=== PATIENT | female | born 1945 | race Caucasian/White ===

== ENCOUNTER 2018-05-26 14:23 | Emergency (ER) | payer MEDICARE, MEDICAID, SELFPAY ==
[2018-05-26 14:34] VITALS: BP 126/77; PULSE 74; RESP 15; TEMP 36.7; O2SAT 96
--- NOTE | 2018-05-26 16:41 | W.ED.GENAD ---
Discharge Plan Disposition Patient Disposition: HOME Condition: Good Discharge Details Chief Complaint: AnimalBite Clinical Impression: Wound due to squirrel bite Primary Care Provider: Brenda Joya V ED Provider: Devin Linares Home Meds and New Rx's Prescriptions: Continue meclizine 25 MG tablet,chewable 25 mg PO QID RF: 0 ascorbic acid (vitamin C) [Vitamin C] 500 MG tablet,chewable 1,000 mg PO DAILY RF: 0 metoprolol succinate 25 MG tablet extended release 24 hr 25 mg PO DAILY RF: 0 nitroglycerin 0.4 MG tablet, sublingual 0.4 mg Sublingual PRN PRNRF: 0 ciprofloxacin HCl 250 mg Tablet 250 mg PO BID RF: 0 Discharge Instructions Instructions: Animal Bite (ED), Rabies (ED), Rabies Vaccine (ED) Additional Instructions: Return immediately for any new or worsening symptoms otherwise follow-up with your primary care provider as needed. Continue to take your medications as ordered Referrals: Brenda Joya MD [Primary Care Provider] - (As needed for reassessment) Discharge Data Discharge Date/Time-TO BE ENTERED AT DEPARTURE: 05/26/18 16:54 Medical Decision Making Patient presenting the emergency department due to primary care provider stating that she needed to come to the emergency department for rabies vaccination. Patient states that last night she was attempting to shoot a school off her bird feeder and came running yelling screaming at the squirrel and it was dark and the squirrel bite her finger. Patient presented to primary care office and placed her on antibiotics but then later called and recommended patient have rabies vaccine. Patient does have small erythematous area to left ring finger which is consistent with animal bite but otherwise no other symptoms and denies any muscle spasms, jaw spasms and denies other symptoms and states that she is asymptomatic. Called and spoke with the nurse at [facility] whom stated somebody talked with the health department and due to erratic behavior of the animal that they recommended rabies vaccine. Patient is very hesitant and states that she does not prefer to have vaccine unless [place] required. I did discuss low likelihood of squirrel bite transmitting rabies and we also discussed more provoked attack and that the animal was not being aggressive towards her but she has been aggressive towards animal. Patient does state clear understanding of risk versus benefit of not receiving vaccine but at this time she chooses not to receive any vaccination. Patient was clearly educated on need to return for any new or worsening symptoms otherwise to follow-up with primary care as needed for reassessment. HPI General Mode of arrival: ambulatory. Date/Time Provider Initiated Documentation: 05/26/18 14:41. Limitations to Documentation: no limitations. Information obtained by: patient and RN notes reviewed. History of Present Illness 72 year old F presents to the emergency department with the chief complaint of Animal bite, described as mild, with intensity rated at 2. Quality is described as aching, and is localized to the right and upper extremity. Patient reports no radiation. Patient started experiencing this day(s) (1) and it has been constant. No relieving factors improve symptom(s), No exacerbating factors reported . Patient notes no other symptoms.. Patient did receive the following treatments prior to arrival, none Related Data Home Medications Medication Instructions Recorded Confirmed meclizine 25 mg PO QID tab-cap 01/17/15 05/26/18 ascorbic acid (vitamin C) [Vitamin 1,000 mg PO DAILY tab.chew 01/22/15 05/26/18 C] metoprolol succinate 25 mg PO DAILY 04/23/15 05/26/18 nitroglycerin 0.4 mg SUBLINGUAL PRN PRN 12/16/17 05/26/18 ciprofloxacin HCl 250 mg PO BID 05/26/18 05/26/18 Allergies Allergy/AdvReac Type Severity Reaction Status Date / Time shellfish derived Allergy Unverified 05/26/18 14:42 General Stated Complaint: AnimalBite BRIGITTE: 4 Review of Systems Constitutional Denies body ache(s), Denies chills and Denies fever(s) Cardiovascular Denies chest pain and Denies dyspnea Respiratory Denies dyspnea Gastrointestinal Denies abdominal pain, Denies nausea and Denies vomiting Integumentary/Breasts Reports as per HPI and Denies rash Neurologic Denies confusion and Denies sensory deficit Psychiatric Denies confusion [facility] Medical History Hypertension (Chronic) Social History Smoking/Tobacco Use Status: Never Exam Const General: cooperative, no acute distress and not ill appearing Orientation: alert, awake and oriented x3 HENMT Mouth: moist mucous membranes Resp Effort & Inspection: normal respiratory effort, able to speak in complete sentences and no respiratory distress Cardio Rate: regular rate Rhythm: regular rhythm Skin General skin exam: no rashes or lesions noted Neuro General: alert, awake, oriented x3, moves all extremities and no focal motor deficits Sensory Exam: no sensory deficits noted Extrem General: full ROM, normal capillary refill and normal exam except as noted Right upper extremity: hand Details: abrasion Location: of the 4th digit Location: on the dorsal aspect Course Vital Signs Temperature 36.7 C 05/26/18 14:34 Pulse 74 05/26/18 14:34 Respiratory Rate 15 05/26/18 14:34 Blood Pressure 126/77 05/26/18 14:34 Pulse Oximetry 96 05/26/18 14:34 Temperature 36.7 C 05/26/18 14:34 Temperature Source Temporal Artery Scan 05/26/18 14:34 Pulse 74 05/26/18 14:34 Respiratory Rate 15 05/26/18 14:34 Respiratory Effort Non-Labored 05/26/18 14:40 Blood Pressure 126/77 05/26/18 14:34 Blood Pressure Position Sitting 05/26/18 14:34 Pulse Oximetry 96 05/26/18 14:34 Oxygen Delivery Method Room Air 05/26/18 14:34 Oxygen Flow Rate 0 05/26/18 14:34
--- NOTE | 2018-05-26 16:45 | ED.GENADUL_ITS ---
Discharge Plan Disposition Patient Disposition: HOME Condition: Good Discharge Details Chief Complaint: AnimalBite Clinical Impression: Wound due to squirrel bite Primary Care Provider: Brenda Joya V ED Provider: Devin Linares Home Meds and New Rx's Prescriptions: Continue meclizine 25 MG tablet,chewable 25 mg PO QID RF: 0 ascorbic acid (vitamin C) [Vitamin C] 500 MG tablet,chewable 1,000 mg PO DAILY RF: 0 metoprolol succinate 25 MG tablet extended release 24 hr 25 mg PO DAILY RF: 0 nitroglycerin 0.4 MG tablet, sublingual 0.4 mg Sublingual PRN PRNRF: 0 ciprofloxacin HCl 250 mg Tablet 250 mg PO BID RF: 0 Discharge Instructions Instructions: Animal Bite (ED), Rabies (ED), Rabies Vaccine (ED) Additional Instructions: Return immediately for any new or worsening symptoms otherwise follow-up with your primary care provider as needed. Continue to take your medications as ordered Referrals: Brenda Joya MD [Primary Care Provider] - (As needed for reassessment) Discharge Data Discharge Date/Time-TO BE ENTERED AT DEPARTURE: 05/26/18 16:54 Medical Decision Making Patient presenting the emergency department due to primary care provider stating that she needed to come to the emergency department for rabies vaccination. Patient states that last night she was attempting to shoot a school off her bird feeder and came running yelling screaming at the squirrel and it was dark and the squirrel bite her finger. Patient presented to primary care office and placed her on antibiotics but then later called and recommended patient have rabies vaccine. Patient does have small erythematous area to left ring finger which is consistent with animal bite but otherwise no other symptoms and denies any muscle spasms, jaw spasms and denies other symptoms and states that she is asymptomatic. [facility] stated somebody talked with the health department and due to erratic behavior of the animal that they recommended rabies vaccine. Patient is very hesitant and states that she does not prefer to have vaccine unless [place] required. I did discuss low likelihood of squirrel bite transmitting rabies and we also discussed more provoked attack and that the animal was not being aggressive towards her but she has been aggressive towards animal. Patient does state clear understanding of risk versus benefit of not receiving vaccine but at this time she chooses not to receive any vaccination. Patient was clearly educated on need to return for any new or worsening symptoms otherwise to follow-up with primary care as needed for reassessment. HPI General Mode of arrival: ambulatory . Date/Time Provider Initiated Documentation: 05/26/18 14:41 . Limitations to Documentation: no limitations . Information obtained by: patient and RN notes reviewed . History of Present Illness 72 year old F presents to the emergency department with the chief complaint of Animal bite, described as mild, with intensity rated at 2. Quality is described as aching, and is localized to the right and upper extremity. Patient reports no radiation. Patient started experiencing this day(s) (1) and it has been constant. No relieving factors improve symptom(s), No exacerbating factors reported . Patient notes no other symptoms.. Patient did receive the following treatments prior to arrival, none Related Data Home Medications Medication Instructions Recorded Confirmed meclizine 25 mg PO QID tab-cap 01/17/15 05/26/18 ascorbic acid (vitamin C) [Vitamin 1,000 mg PO DAILY tab.chew 01/22/15 05/26/18 C] metoprolol succinate 25 mg PO DAILY 04/23/15 05/26/18 nitroglycerin 0.4 mg SUBLINGUAL PRN PRN 12/16/17 05/26/18 ciprofloxacin HCl 250 mg PO BID 05/26/18 05/26/18 Allergies Allergy/AdvReac Type Severity Reaction Status Date / Time shellfish derived Allergy Unverified 05/26/18 14:42 General Stated Complaint: AnimalBite BRIGITTE: 4 Review of Systems Constitutional Denies body ache(s), Denies chills and Denies fever(s) Cardiovascular Denies chest pain and Denies dyspnea Respiratory Denies dyspnea Gastrointestinal Denies abdominal pain, Denies nausea and Denies vomiting Integumentary/Breasts Reports as per HPI and Denies rash Neurologic Denies confusion and Denies sensory deficit Psychiatric Denies confusion [facility] Medical History Hypertension (Chronic) Social History Smoking/Tobacco Use Status: Never Exam Const General: cooperative, no acute distress and not ill appearing Orientation: alert, awake and oriented x3 HENMT Mouth: moist mucous membranes Resp Effort & Inspection: normal respiratory effort, able to speak in complete sentences and no respiratory distress Cardio Rate: regular rate Rhythm: regular rhythm Skin General skin exam: no rashes or lesions noted Neuro General: alert, awake, oriented x3, moves all extremities and no focal motor deficits Sensory Exam: no sensory deficits noted Extrem General: full ROM, normal capillary refill and normal exam except as noted Right upper extremity: hand Details: abrasion Location: of the 4th digit Location: on the dorsal aspect Course Vital Signs Temperature 36.7 C 05/26/18 14:34 Pulse 74 05/26/18 14:34 Respiratory Rate 15 05/26/18 14:34 Blood Pressure 126/77 05/26/18 14:34 Pulse Oximetry 96 05/26/18 14:34 Temperature 36.7 C 05/26/18 14:34 Temperature Source Temporal Artery Scan 05/26/18 14:34 Pulse 74 05/26/18 14:34 Respiratory Rate 15 05/26/18 14:34 Respiratory Effort Non-Labored 05/26/18 14:40 Blood Pressure 126/77 05/26/18 14:34 Blood Pressure Position Sitting 05/26/18 14:34 Pulse Oximetry 96 05/26/18 14:34 Oxygen Delivery Method Room Air 05/26/18 14:34 Oxygen Flow Rate 0 05/26/18 14:34
[2018-05-26 16:53] VITALS: BP 133/80; PULSE 80; RESP 18; TEMP 36.8; O2SAT 95
== END 2018-05-26 16:54 | disposition home or self-care (01) ==
PROVIDERS: Emergency Provider Nurse Practitioner Family; PCP Family Medicine
DX: S61.254A Open bite of right ring finger without damage to nail, initial encounter (principal); W53.21XA Bitten by squirrel, initial encounter
CPT/HCPCS: 99282

== ENCOUNTER 2018-06-12 08:17 | Day surgery (SDC) | payer MEDICARE, MEDICAID, SELFPAY ==
--- NOTE | 2018-06-11 12:41 | W.PIPPEYE ---
History of Present Illness Chief Complaint: Progressive decreased vision, left eye Narrative: The patient is a 72-year old female with history of progressive decreased vision in her left eye at both distance and near. She has significant difficulty with glare from sunlight and bright headlights. She was noted to have a moderate nuclear and cortical cataract of the left eye with visual acuity of 20/40. She has developed a significant myopic shift in the left eye due to progressive cataract. She always takes her glasses off to read, and desires to do so postoperatively. Postoperative refractive target will be targeted for -2.50 diopters. NOTE: The Chief Complaint, HPI, Past Medical History, Past Surgical History, Family History, Social History, Medications, and complete Ophthalmic Exam with detailed Assessment and Plan have already been documented in the patient's outpatient ophthalmic record and are not covered again in detail here. Meds Home Medications Medication Instructions Recorded Confirmed Type meclizine 25 mg PO Q6H PRN PRN tab-cap 01/17/15 06/07/18 History ascorbic acid (vitamin C) [Vitamin 1,000 mg PO DAILY tab.chew 01/22/15 06/07/18 History C] ascorbic acid (vitamin C) [Vitamin 1 g PO DAILY 05/23/18 05/23/18 History C] meclizine 12.5 - 25 mg PO PRN PRN 05/23/18 05/23/18 History metoprolol tartrate 12.5 mg PO HS 05/23/18 05/23/18 History nitroglycerin 0.4 mg SUBLINGUAL DIRECTED 05/23/18 05/23/18 History calcium carbonate-vit D3-min 1 tab PO .QOD 06/07/18 06/07/18 History [Calcium 600 + Minerals] cholecalciferol (vitamin D3) 1,000 unit PO DAILY 06/07/18 06/07/18 History [Vitamin D3] clobetasol 1 applic TOPICAL DAILY 06/07/18 06/07/18 History mupirocin 1 applic TOPICAL BID 06/07/18 06/07/18 History rosuvastatin [Crestor] 5 mg PO DAILY 06/07/18 06/07/18 History Allergies Allergy/AdvReac Type Severity Reaction Status Date / Time bacitracin [From Cortisporin] Allergy Mild Verified 06/07/18 11:10 cephalexin Allergy Mild Verified 06/07/18 11:10 hydrocortisone Allergy Mild Verified 06/07/18 11:10 [From Cortisporin] neomycin [From Cortisporin] Allergy Mild Verified 06/07/18 11:10 Penicillins Allergy Mild Verified 06/07/18 11:10 polymyxin B Allergy Mild Verified 06/07/18 11:10 [From Cortisporin] amoxicillin Allergy Unknown Verified 06/05/18 14:04 shellfish derived Allergy Unverified 06/05/18 14:04 Sulfa (Sulfonamide Allergy Verified 06/05/18 14:04 Antibiotics) Exam OCULAR EXAM:: Visual acuity at distance: Corrected to 20/20 right eye, 20/40 left eye. Pupils: Pupils equal, round, and reactive without afferent pupillary defect IOP: 16 OD, 14 OS. Extraocular Motility: Normal Pertinent Slit Lamp Findings: Significant for pupils dilating to 6.5 mm OU. 1+ nuclear with trace cortical cataract OD. 2+ nuclear in 1-2+ cortical cataract are present OS. Dilated Funduscopic Examination: Disc cupping is 0.3 OU with a small tilted disc. The optic nerves have good perfusion and normal color. The retinal vasculature is normal without significant tortuosity or abnormality. The maculas are normal in appearance with normal contour and foveal reflex appropriate for age. The peripheral retina and vitreous are normal. BRIGHTNESS ACUITY TESTING (BAT):: Off left eye 20/40 Low: 20/60 Medium: 20/60 High: 20/80 Assessment and Plan (1) Myopia of left eye: Current visit: No Status: Acute Assessment: Myopia Plan: The patient is myopic and has removed her glasses to read for a long time. She desires to remain myopic after cataract surgery. Postoperative refractive target is set at -2.50 diopters. (2) Nuclear sclerotic cataract of left eye: Current visit: No Status: Acute Assessment: Visually significant cataract, left eye. Plan: Cataract extraction with intraocular lens implantation, left eye (3) Cortical cataract of left eye: Current visit: No Status: Acute Assessment: Visually significant cataract, left eye. Plan: Cataract extraction with intraocular lens implantation, left eye Note: NOTE:: The details of the planned surgery, including the risks, indications,limitations,expectations,outcome and possible complications were explained to the patient. The patient understands the complications including, but not limited to: infection, hemorrhage, posterior dislocation of the lens or nuclear fragments which may require the intervention of a vitreoretinal surgeon, possible loss of the eye, or from anesthetic complications. The patient has been made aware of the option of not having surgery, that vision following surgery may not be equal to that prior to surgery, and that the planned surgery may not achieve the intended results. Following this discussion, which the patient appeared to understand, the patient wishes to proceed with cataract surgery with lens implantation of the affected eye to improve and maximize vision.
[2018-06-12 09:02] VITALS: BP 147/83; PULSE 64; RESP 16; TEMP 37; O2SAT 98
[2018-06-12] MEDS: Tetracaine 0.5% 4 ML BTL OS ×3 (09:27→09:36)
--- NOTE | 2018-06-12 10:50 | DSU.FORM ---
1015: PT. SURGERY CANCELLED PER ANESTHESIA, PENDING F/U WITH PRESS PIPE INSPECTOR.
--- NOTE | 2018-07-10 08:47 | W.PM.DSUDISC ---
Discharge Plan Disposition Patient Disposition: HOME Condition: Stable Discharge Details Reason For Visit: [id number] Attending Provider: Benny Cabrera Primary Care Provider: Brenda Joya V Home Meds and New Rx's Prescriptions: No Action meclizine 25 MG tablet,chewable 25 mg PO Q6H PRN PRNRF: 0 ascorbic acid (vitamin C) [Vitamin C] 500 MG tablet,chewable 1,000 mg PO DAILY RF: 0 metoprolol tartrate 25 mg Tablet 12.5 mg PO HS RF: 0 nitroglycerin 0.4 mg Tablet, Sublingual 0.4 mg SUBLINGUAL DIRECTED RF: 0 clobetasol 0.05 % Cream 1 applic TOPICAL DAILY RF: 0 mupirocin 2 % Ointment 1 applic TOPICAL BID RF: 0 cholecalciferol (vitamin D3) [Vitamin D3] 1,000 unit Capsule 1,000 unit PO DAILY RF: 0 rosuvastatin [Crestor] 5 mg Tablet 5 mg PO DAILY RF: 0 Calcium 600 + Minerals 600 mg calcium- 200 unit Tablet 1 tab PO .QOD RF: 0 ciprofloxacin HCl 250 mg Tablet 250 mg PO RF: 0 Discharge Instructions Stand Alone Forms: Post-op Topical Cataract, Royce Larryey ([facility]U) Discharge Orders Discharge Orders: Discharge Order (Routine); Ordered 07/10/18 Ordered By: Benny Cabrera Discharge Data Discharge Date/Time-TO BE ENTERED AT DEPARTURE: 06/12/18 10:15 Discharge Comment: SURGERY CANCELLED PER ANES. PT LEFT VIA RCT. DS: Diagnosis Discharge Diagnosis (1) Myopia of left eye: Status: Resolved (2) Nuclear sclerotic cataract of left eye: Status: Resolved (3) Cortical cataract of left eye: Status: Resolved (4) Status post cataract extraction and insertion of intraocular lens of left eye: Status: Chronic
--- NOTE | 2018-07-10 08:48 | W.PM.OP ---
Date of service: 07/10/18 Time of Service: 08:48 Operative Note DATE OF PROCEDURE: 07/10/18 PRE-OP DIAGNOSIS: Cataract, left eye POST-OP DIAGNOSIS: same PROCEDURE: Cataract extraction using phacoemulsification with intraocular lens implant, left eye SURGEON: Benny Cabrera ANESTHESIA: MAC and local (sub-tenon's anesthetic infiltration) PATHOLOGY: none sent COMPLICATIONS: None Patient was transported to: same day Patient's condition: stable Implants: [employer] / [employer] Tecnis [id number] Indications: Progressive decreased vision due to cataract, left eye Procedure Description: CATARACT SURGERY OPERATIVE REPORT PREOPERATIVE DIAGNOSIS: Nuclear/cortical cataract, left eye, symptomatic POSTOPERATIVE DIAGNOSIS: Same OPERATION: Cataract extraction using phacoemulsification with posterior chamber intraocular lens implant, left eye. IOL: IOL Manager Regional Sales/Model: [employer]J Vision / SANCHEZ Tecnis ZCB00 IOL Power: + 20.0 diopters IOL Serial Number: [id number] Optic Diameter: 6.0mm Haptic/Overall Diameter: 13.0mm PHACO INFO: [employer] Vision System with OZil and Active Fluidics Cumulative Dispersed Energy (CDE): 8.11 seconds SURGEON: Benny Cabrera MD, RHIANNA ANESTHESIA: Monitored Anesthesia Care (MAC), with local sub-tenon's anesthetic infiltration COMPLICATIONS: None SPECIMENS: None INDICATIONS FOR PROCEDURE: The patient is a 72-year-old lady with history of myopia who has developed a significant nuclear and cortical cataract of the left eye. She was significantly symptomatic that she desired cataract surgery and attempt to improve and maximize her vision. Postoperative refractive target is -2.50. PROCEDURE: The correct surgical eye was identified and marked as the left eye and the pupil was dilated in the preoperative area using mydriatics and cycloplegics. The dilated pupil size was 7.0 mm. Oral sedation was administered in the form of an Imprimis MKO Melt (midazolam 3mg/ketamine 25mg/ondansetron 2mg). The patient was brought to the operating room where cardiopulmonary monitoring was instituted and surgical time-out was performed, confirming the correct operative eye and IOL power. Topical anesthesia was administered and ophthalmic povidone-iodine 5% was instilled into the conjunctival fornices. Lidocaine gel was applied to the cornea and the sridevi-ocular area was prepped with Betadine 10% solution and draped in the usual sterile fashion for intraocular surgery, including an aperture drape. A Tegaderm transparent film dressing was cut in half and used to cover the lashes and lid margins. Care was taken to sequester the lashes and lid margins under the Tegaderm dressing. A lid speculum was placed between the lids of the operative eye and the Jair-Mariam operating microscope was maneuvered into position. Adeline scissors were then used to make a conjunctival buttonhole approximately 6mm posterior to the limbus in the inferonasal quadrant. Blunt dissection was carried out to expose bare sclera, and a blunt-tipped sub-tenon?s anesthesia cannula was introduced and passed posteriorly along the globe where non-preserved plain lidocaine was injected into posterior sub-Tenon?s space. A sideport knife was used to make a paracentesis port superior/superiortemporal, and the anterior chamber was filled with Healon GV. A 2.4mm keratome knife was used to create a half-thickness groove at the limbus and then to construct a three-plane near-clear corneal tunnel extending 2.0mm into clear cornea in the temporal position. . A flap was raised on the anterior capsule and capsulorhexis forceps were used to complete a continuous curvilinear capsulorhexis of 5.5 mm. The capsule was noted to be quite thin with a deep anterior chamber Balanced salt solution was then used to perform cortical cleaving hydrodissection and nuclear hydrodelineation until the lens could be freely rotated within the capsular bag. The lens nucleus was then disassembled and removed within the capsular bag and iris plane using phacoemulsification. Residual cortical material was removed using the 45-degree angled silicone I/A tip with 0.3mm port. The posterior capsule was carefully polished to remove as much residual lens epithelial cells as safely possible. The capsular bag was then inflated and the anterior chamber deepened with viscoelastic. The lens implant described above was inserted into the capsular bag using the SANCHEZ [place] Injector. A Kuglen hook was used to dial the IOL into position. Residual viscoelastic was then removed first from posterior to the IOL, then from the anterior chamber using the I/A handpiece. The lens implant was noted to center nicely within the capsular bag. The incisions were stromally hydrated, and the anterior chamber was reformed using BSS. Then 0.4cc of moxifloxacin 1.5mg/ml were injected into the capsular bag and anterior chamber. The incisions were checked with a Weck spear and found to be secure. Several drops of ophthalmic povidone-iodine 5% were then applied to the eye followed by two drops of Imprimis combination moxifloxacin/dexamethasone solution. The drapes were removed and a clear plastic protective eye shield was placed over the eye. The patient was then returned to Same Day Surgery in stable condition.
--- NOTE | 2018-07-10 08:51 | ROE_ITS ---
Date of service: 07/10/18 Time of Service: 08:48 Operative Note DATE OF PROCEDURE: 07/10/18 PRE-OP DIAGNOSIS: Cataract, left eye POST-OP DIAGNOSIS: same PROCEDURE: Cataract extraction using phacoemulsification with intraocular lens implant, left eye SURGEON: Benny Cabrera ANESTHESIA: MAC and local (sub-tenon's anesthetic infiltration) PATHOLOGY: none sent COMPLICATIONS: None Patient was transported to: same day Patient's condition: stable Implants: [employer] Vision / [employer] Tecnis [id number] Indications: Progressive decreased vision due to cataract, left eye Procedure Description: CATARACT SURGERY OPERATIVE REPORT PREOPERATIVE DIAGNOSIS: Nuclear/cortical cataract, left eye, symptomatic POSTOPERATIVE DIAGNOSIS: Same OPERATION: Cataract extraction using phacoemulsification with posterior chamber intraocular lens implant, left eye. IOL: IOL Marine Machinist/Model: J&J Vision / SANCHEZ Tecnis ZCB00 IOL Power: + 20.0 diopters IOL Serial Number: [id number] Optic Diameter: 6.0mm Haptic/Overall Diameter: 13.0mm PHACO INFO: [employer] Vision System with OZil and Active Fluidics Cumulative Dispersed Energy (CDE): 8.11 seconds SURGEON: Benny Cabrera MD, RHIANNA ANESTHESIA: Monitored Anesthesia Care (MAC), with local sub-tenon's anesthetic infiltration COMPLICATIONS: None SPECIMENS: None INDICATIONS FOR PROCEDURE: The patient is a 72-year-old lady with history of myopia who has developed a significant nuclear and cortical cataract of the left eye. She was significantly symptomatic that she desired cataract surgery and attempt to improve and maximize her vision. Postoperative refractive target is -2.50. PROCEDURE: The correct surgical eye was identified and marked as the left eye and the pupil was dilated in the preoperative area using mydriatics and cycloplegics. The dilated pupil size was 7.0 mm. Oral sedation was administered in the form of an Imprimis MKO Melt (midazolam 3mg/ketamine 25mg/ondansetron 2mg). The patient was brought to the operating room where cardiopulmonary monitoring was instituted and surgical time-out was performed, confirming the correct operative eye and IOL power. Topical anesthesia was administered and ophthalmic povidone-iodine 5% was instilled into the conjunctival fornices. Lidocaine gel was applied to the cornea and the sridevi-ocular area was prepped with Betadine 10% solution and draped in the usual sterile fashion for intraocular surgery, including an aperture drape. A Tegaderm transparent film dressing was cut in half and used to cover the lashes and lid margins. Care was taken to sequester the lashes and lid margins under the Tegaderm dressing. A lid speculum was placed between the lids of the operative eye and the Jair-Mariam operating microscope was maneuvered into position. Adeline scissors were then used to make a conjunctival buttonhole approximately 6mm posterior to the limbus in the inferonasal quadrant. Blunt dissection was carried out to expose bare sclera, and a blunt-tipped sub-tenon?s anesthesia cannula was introduced and passed posteriorly along the globe where non- preserved plain lidocaine was injected into posterior sub-Tenon?s space. A sideport knife was used to make a paracentesis port superior/superiortemporal, and the anterior chamber was filled with Healon GV. A 2.4mm keratome knife was used to create a half-thickness groove at the limbus and then to construct a three-plane near-clear corneal tunnel extending 2.0mm into clear cornea in the temporal position. . A flap was raised on the anterior capsule and capsulorhexis forceps were used to complete a continuous curvilinear capsulorhexis of 5.5 mm. The capsule was noted to be quite thin with a deep anterior chamber Balanced salt solution was then used to perform cortical cleaving hydrodissection and nuclear hydrodelineation until the lens could be freely rotated within the capsular bag. The lens nucleus was then disassembled and removed within the capsular bag and iris plane using phacoemulsification. Residual cortical material was removed using the 45-degree angled silicone I/A tip with 0.3mm port. The posterior capsule was carefully polished to remove as much residual lens epithelial cells as safely possible. The capsular bag was then inflated and the anterior chamber deepened with viscoelastic. The lens implant described above was inserted into the capsular bag using the SANCHEZ [place] Injector. A Kuglen hook was used to dial the IOL into position. Residual viscoelastic was then removed first from posterior to the IOL, then from the anterior chamber using the I/A handpiece. The lens implant was noted to center nicely within the capsular bag. The incisions were stromally hydrated, and the anterior chamber was reformed using BSS. Then 0.4cc of moxifloxacin 1.5mg/ml were injected into the capsular bag and anterior chamber. The incisions were checked with a Weck spear and found to be secure. Several drops of ophthalmic povidone-iodine 5% were then applied to the eye followed by two drops of Imprimis combination moxifloxacin/dexamethasone solution. The drapes were removed and a clear plastic protective eye shield was placed over the eye. The patient was then returned to Same Day Surgery in stable condition.
== END 2018-06-12 10:15 | disposition home or self-care (01) ==
LOC: SUR 08:17
PROVIDERS: PCP Family Medicine; Visit Provider Ophthalmology
DX: H25.12 Age-related nuclear cataract, left eye (principal); Z53.09 Procedure and treatment not carried out because of other contraindication; R07.9 Chest pain, unspecified; Y66 Nonadministration of surgical and medical care
CPT/HCPCS: 66984

== ENCOUNTER 2018-07-10 06:39 | Day surgery (SDC) | payer MEDICARE, MEDICAID, SELFPAY ==
--- NOTE | 2018-07-09 16:39 | POEE_ITS ---
History of Present Illness Chief Complaint: Progressive decreased vision, left eye Narrative: The patient is a 72-year old female who presented with complaints of progressive decreased vision at both distance and near in her left eye. She notes she can no longer see clearly in her left eye. She was noted to have a significant nuclear and cortical cataract with visual acuity of 20/40 in the left eye. The option of cataract surgery was offered to the patient and she wished to proceed. NOTE: The Chief Complaint, HPI, Past Medical History, Past Surgical History, Family History, Social History, Medications, and complete Ophthalmic Exam with detailed Assessment and Plan have already been documented in the patient's outpatient ophthalmic record and are not covered again in detail here. PFSH Medical History Cortical cataract of left eye (Acute) Nuclear sclerotic cataract of left eye (Acute) Hypertension (Chronic) Social History Smoking/Tobacco Use Status: Former Tobacco Use Meds Home Medications Medication Instructions Recorded Confirmed Type meclizine 25 mg PO Q6H PRN PRN tab-cap 01/17/15 07/05/18 History ascorbic acid (vitamin C) [Vitamin 1,000 mg PO DAILY tab.chew 01/22/15 07/05/18 History C] metoprolol tartrate 12.5 mg PO HS 05/23/18 07/05/18 History nitroglycerin 0.4 mg SUBLINGUAL DIRECTED 05/23/18 07/05/18 History calcium carbonate-vit D3-min 1 tab PO .QOD 06/07/18 07/05/18 History [Calcium 600 + Minerals] cholecalciferol (vitamin D3) 1,000 unit PO DAILY 06/07/18 07/05/18 History [Vitamin D3] clobetasol 1 applic TOPICAL DAILY 06/07/18 07/05/18 History mupirocin 1 applic TOPICAL BID 06/07/18 07/05/18 History rosuvastatin [Crestor] 5 mg PO DAILY 06/07/18 07/05/18 History ciprofloxacin HCl 250 mg PO 06/12/18 History Allergies Allergy/AdvReac Type Severity Reaction Status Date / Time bacitracin [From Cortisporin] Allergy Mild Verified 07/05/18 12:03 cephalexin Allergy Mild Verified 07/05/18 12:03 hydrocortisone Allergy Mild Verified 07/05/18 12:03 [From Cortisporin] neomycin [From Cortisporin] Allergy Mild Verified 07/05/18 12:03 Penicillins Allergy Mild Verified 07/05/18 12:03 polymyxin B Allergy Mild Verified 07/05/18 12:03 [From Cortisporin] amoxicillin Allergy Unknown Verified 07/05/18 12:03 shellfish derived Allergy Unverified 07/05/18 12:03 Sulfa (Sulfonamide Allergy Verified 07/05/18 12:03 Antibiotics) Exam OCULAR EXAM:: Most recent ocular examination reveals corrected visual acuity of 20/20 right eye, 20/40 left eye. Pupils equal, round, and reactive without afferent pupillary defect. Intraocular pressure is 16 OD, 14 OS. Extraocular motility is normal. Slit-lamp examination reveals pupils dilating to 6.5 mm OU. 1+ nuclear with trace cortical cataract OD. 2+ nuclear with 1-2+ cortical cataract in the left eye. Funduscopic examination reveals disc cupping of 0.1 OU with good color. The optic nerves have good perfusion and normal color. The retinal vasculature is normal without significant tortuosity or abnormality. The maculas are normal in appearance with normal contour and foveal reflex appropriate for age. The peripheral retina and vitreous are normal. BRIGHTNESS ACUITY TESTING (BAT):: Brightness acuity testing of the left eye of 20/40. Low 20/60. Medium 20/60. High 20/80. Assessment and Plan (1) Nuclear sclerotic cataract of left eye: Current visit: No Status: Acute Assessment: Visually significant cataract, left eye. Plan: Cataract extraction with intraocular lens implantation, left eye (2) Cortical cataract of left eye: Current visit: No Status: Acute Assessment: Visually significant cataract, left eye. Plan: Cataract extraction with intraocular lens implantation, left eye Note: NOTE:: The details of the planned surgery, including the risks, indications,limitations,expectations,outcome and possible complications were explained to the patient. The patient understands the complications including, but not limited to: infection, hemorrhage, posterior dislocation of the lens or nuclear fragments which may require the intervention of a vitreoretinal surgeon, possible loss of the eye, or from anesthetic complications. The patient h as been made aware of the option of not having surgery, that vision following surgery may not be equal to that prior to surgery, and that the planned surgery may not achieve the intended results. Following this discussion, which the patient appeared to understand, the patient wishes to proceed with cataract surgery with lens implantation of the affected eye to improve and maximize vision.
[2018-07-10 06:56] VITALS: BP 145/85; PULSE 77; RESP 16; TEMP 36.6; O2SAT 98
[2018-07-10] MEDS: Tetracaine 0.5% 4 ML BTL OS ×2 (07:18→08:17)
[2018-07-10] MEDS: Tropicam./Phenyleph. (1/2.5%) 5 ML BTL OS ×3 (07:19→07:57)
[2018-07-10] MEDS: Balanced Salt Soln.-PLUS 500 ML BAG (08:17)
[2018-07-10] MEDS: Lidocaine 2% Jelly 6 ML SYR (08:17)
[2018-07-10] MEDS: Lidocaine 1% Pres-Free 5 ML VIAL (08:21)
[2018-07-10] MEDS: Povidone-Iodine Ophth 30 ML BTL (08:25)
[2018-07-10 09:10] VITALS: BP 120/78; PULSE 79; RESP 16; TEMP 37.4; O2SAT 94
--- NOTE | 2018-07-10 09:56 | ROE_ITS ---
Date of service: 07/10/18 Time of Service: 08:48 Operative Note DATE OF PROCEDURE: 07/10/18 PRE-OP DIAGNOSIS: Cataract, left eye POST-OP DIAGNOSIS: same PROCEDURE: Cataract extraction using phacoemulsification with intraocular lens implant, left eye SURGEON: Benny Cabrera ANESTHESIA: MAC and local (sub-tenon's anesthetic infiltration) PATHOLOGY: none sent COMPLICATIONS: None Patient was transported to: same day Patient's condition: stable Implants: Erwin [employer] Vision / [employer] Tecnis [id number] Indications: Progressive decreased vision due to cataract, left eye Procedure Description: CATARACT SURGERY OPERATIVE REPORT PREOPERATIVE DIAGNOSIS: Nuclear/cortical cataract, left eye, symptomatic POSTOPERATIVE DIAGNOSIS: Same OPERATION: Cataract extraction using phacoemulsification with posterior chamber intraocular lens implant, left eye. IOL: IOL Equal Opportunity Specialist/Model: J&J Vision / SANCHEZ Tecnis ZCB00 IOL Power: + 20.0 diopters IOL Serial Number: [id number] Optic Diameter: 6.0mm Haptic/Overall Diameter: 13.0mm PHACO INFO: [employer] Vision System with OZil and Active Fluidics Cumulative Dispersed Energy (CDE): 8.11 seconds SURGEON: Benny Cabrera MD, RHIANNA ANESTHESIA: Monitored Anesthesia Care (MAC), with local sub-tenon's anesthetic infiltration COMPLICATIONS: None SPECIMENS: None INDICATIONS FOR PROCEDURE: The patient is a 72-year-old lady with history of myopia who has developed a significant nuclear and cortical cataract of the left eye. She was significantly symptomatic that she desired cataract surgery and attempt to improve and maximize her vision. Postoperative refractive target is -2.50. PROCEDURE: The correct surgical eye was identified and marked as the left eye and the pupil was dilated in the preoperative area using mydriatics and cycloplegics. The dilated pupil size was 7.0 mm. Oral sedation was administered in the form of an Imprimis MKO Melt (midazolam 3mg/ketamine 25mg/ondansetron 2mg). The patient was brought to the operating room where cardiopulmonary monitoring was instituted and surgical time-out was performed, confirming the correct operative eye and IOL power. Topical anesthesia was administered and ophthalmic povidone-iodine 5% was instilled into the conjunctival fornices. Lidocaine gel was applied to the cornea and the sridevi-ocular area was prepped with Betadine 10% solution and draped in the usual sterile fashion for intraocular surgery, including an aperture drape. A Tegaderm transparent film dressing was cut in half and used to cover the lashes and lid margins. Care was taken to sequester the lashes and lid margins under the Tegaderm dressing. A lid speculum was placed between the lids of the operative eye and the Jair-Mariam operating microscope was maneuvered into position. Adeline scissors were then used to make a conjunctival buttonhole approximately 6mm posterior to the limbus in the inferonasal quadrant. Blunt dissection was carried out to expose bare sclera, and a blunt-tipped sub-tenon?s anesthesia cannula was introduced and passed posteriorly along the globe where non- preserved plain lidocaine was injected into posterior sub-Tenon?s space. A sideport knife was used to make a paracentesis port superior/superiortemporal, and the anterior chamber was filled with Healon GV. A 2.4mm keratome knife was used to create a half-thickness groove at the limbus and then to construct a three-plane near-clear corneal tunnel extending 2.0mm into clear cornea in the temporal position. . A flap was raised on the anterior capsule and capsulorhexis forceps were used to complete a continuous curvilinear capsulorhexis of 5.5 mm. The capsule was noted to be quite thin with a deep anterior chamber Balanced salt solution was then used to perform cortical cleaving hydrodissection and nuclear hydrodelineation until the lens could be freely rotated within the capsular bag. The lens nucleus was then disassembled and removed within the capsular bag and iris plane using phacoemulsification. Residual cortical material was removed using the 45-degree angled silicone I/A tip with 0.3mm port. The posterior capsule was carefully polished to remove as much residual lens epithelial cells as safely possible. The capsular bag was then inflated and the anterior chamber deepened with viscoelastic. The lens implant described above was inserted into the capsular bag using the SANCHEZ [place] Injector. A Kuglen hook was used to dial the IOL into position. Residual viscoelastic was then removed first from posterior to the IOL, then from the anterior chamber using the I/A handpiece. The lens implant was noted to center nicely within the capsular bag. The incisions were stromally hydrated, and the anterior chamber was reformed using BSS. Then 0.4cc of moxifloxacin 1.5mg/ml were injected into the capsular bag and anterior chamber. The incisions were checked with a Weck spear and found to be secure. Several drops of ophthalmic povidone-iodine 5% were then applied to the eye followed by two drops of Imprimis combination moxifloxacin/dexamethasone solution. The drapes were removed and a clear plastic protective eye shield was placed over the eye. The patient was then returned to Same Day Surgery in stable condition.
== END 2018-07-10 09:35 | disposition home or self-care (01) ==
LOC: SUR 06:40
PROVIDERS: PCP Family Medicine; Visit Provider Ophthalmology
PROC: (CPT 66984; principal; 2018-07-10 08:30)
DX: H25.812 Combined forms of age-related cataract, left eye (principal)
CPT/HCPCS: 66984; V2632

== ENCOUNTER 2018-11-09 00:21 | Outpatient (CLI) | payer MEDICARE, MEDICAID, SELFPAY ==
--- NOTE | 2018-11-09 13:15 | DI.RAD_ITS ---
SYMPTOMS/DIAGNOSIS: OSTEOPOROSIS, M81.0, PREVENTATIVE CARE, Z00.00 DEXA SCAN: DEXA scan was performed according to the usual protocol. Findings for left hip scanning are a T score of -2.7 with left femoral neck T score of -2.4. Previous examination of November 2013 showed left hip T score of -2.6. Lumbosacral spine scanning shows a T score of -1.2. Previous examination of November 2013 showed a T score of -1.6. CONCLUSION: Findings consistent with osteoporosis according to the WHO criteria. Please note that the lateral vertebral scanogram shows no evidence of a vertebral compression fracture.
== END 2018-11-09 00:41 ==
PROVIDERS: PCP Family Medicine; Visit Provider Family Medicine
DX: M81.0 Age-related osteoporosis without current pathological fracture (principal)
CPT/HCPCS: 77080

== ENCOUNTER 2020-01-08 14:05 | Outpatient (CLI) | payer MEDICARE, MEDICAID, SELFPAY ==
--- NOTE | 2020-01-08 | DI.RAD_ITS ---
EXAM: XR ANKLE LT COMPLETE CLINICAL HISTORY: LT ANKLE PAIN, M25.572 TECHNIQUE: 2D digital imaging was performed. COMPARISON: No exams were available for comparison FINDINGS: BONES: There is a fracture at the base of the 5th metatarsal which is mildly displaced. It is not we ll imaged on this exam.. No bony destructive lesion is seen. JOINTS:The ankle mortise is normally aligned. SOFT TISSUE: There is marked soft tissue swelling around both malleoli. IMPRESSION: Fracture at the base of the 5th metatarsal.. DATA REPOSITORY: RADIATION DOSE DELIVERED:
== END 2020-01-08 14:25 ==
PROVIDERS: PCP Family Medicine; Visit Provider Physician Assistant Medical
DX: M25.572 Pain in left ankle and joints of left foot (principal); S92.352A Displaced fracture of fifth metatarsal bone, left foot, initial encounter for closed fracture; M79.89 Other specified soft tissue disorders
CPT/HCPCS: 73610

== ENCOUNTER 2020-01-23 08:23 | Outpatient (CLI) | payer MEDICARE, MEDICAID, SELFPAY ==
--- NOTE | 2020-01-23 08:45 | DI.RAD_ITS ---
EXAM: XR FOOT LT COMPLETE CLINICAL HISTORY: F/U FRACTURE. TECHNIQUE: 2D digital imaging was performed. COMPARISON: CR XR ANKLE LT COMPLETE from 01/08/2020 FINDINGS: BONES: There has been no change in alignment of the fracture of the base of the left 5th metatarsal. There also appears to be a nondisplaced fracture involving the proximal and inferior aspect of the c uboid. No bony destructive lesion is seen. JOINTS: There is a hallux valgus deformity present degenerative changes are seen at the 1st MTP joint . SOFT TISSUE: Soft tissue swelling of the lateral foot is noted. IMPRESSION: Stable fractures involving the cuboid and the 5th metatarsal. DATA REPOSITORY: RADIATION DOSE DELIVERED:
== END 2020-01-23 08:43 ==
PROVIDERS: PCP Family Medicine; Visit Provider Orthopaedic Surgery
DX: S92.215A Nondisplaced fracture of cuboid bone of left foot, initial encounter for closed fracture; S92.352A Displaced fracture of fifth metatarsal bone, left foot, initial encounter for closed fracture; X50.1XXA Overexertion from prolonged static or awkward postures, initial encounter; I10 Essential (primary) hypertension
CPT/HCPCS: 99203; 99214; L4361; 73630

== ENCOUNTER 2020-02-20 10:28 | Outpatient (CLI) | payer MEDICARE, MEDICAID, SELFPAY ==
--- NOTE | 2020-02-20 10:00 | DI.RAD_ITS ---
EXAM: XR FOOT LT COMPLETE CLINICAL HISTORY: f/u TECHNIQUE: 2D digital imaging was performed. COMPARISON: CR XR FOOT LT COMPLETE from 01/23/2020 FINDINGS: The bones appear osteopenic. Hallux valgus is noted. There has been continued healing of the fractu re at the base of the 5th metatarsal. The cuboid fracture is faintly seen on the oblique view. No n ew abnormalities are seen.
== END 2020-02-20 10:48 ==
PROVIDERS: PCP Family Medicine; Referring Provider Family Medicine; Visit Provider Orthopaedic Surgery
DX: S92.352A Displaced fracture of fifth metatarsal bone, left foot, initial encounter for closed fracture; X58.XXXD Exposure to other specified factors, subsequent encounter; I10 Essential (primary) hypertension; M20.12 Hallux valgus (acquired), left foot
CPT/HCPCS: 99213; 73630

== ENCOUNTER 2020-08-12 14:16 | Emergency (ER) | payer MEDICARE, MEDICAID, SELFPAY ==
--- NOTE | 2020-08-12 14:15 | DI.RAD_ITS ---
EXAM: XR WRIST RT COMPLETE CLINICAL HISTORY: right wrist pain and deformity post fall. TECHNIQUE: 2D digital imaging was performed. COMPARISON: No exams were available for comparison FINDINGS: BONES: There is an acute comminuted fracture of the distal right radius. There is mild impaction of the fracture. The fracture does extend distally into the radiocarpal joint. There is a displaced ul ángel styloid process fracture. No other acute fractures identified. No bony destructive lesion is se en. JOINTS: The carpal bones are normally aligned. Mild degenerative changes are seen in the carpus. SOFT TISSUE: There is soft tissue swelling of the wrist. IMPRESSION: 1. Acute comminuted intra-articular fracture of the distal right radius. 2. Displaced ulnar styloid process fracture. DATA REPOSITORY: RADIATION DOSE DELIVERED:
--- NOTE | 2020-08-12 14:15 | RT.EKG_ITS ---
APPROVED REPORT Exam: Resting ECG Patient Location: E HR:95 bpm ECG Measurements Heart Rate 95 AXIS GA 171 P 63 QRSd 119 QRS 24 QT 389 T 31 QTc 489 Conclusion Sinus rhythm...normal P axis, V-rate 60- 99 Probable left atrial enlargement...P >50mS, <-0.10mV V1 IRBBB and LPFB...RAD, QRSd>120, term axis(90,270) I have reviewed and interpreted ECG and agree with software generated interpretation.
[2020-08-12 14:23] VITALS: BP 184/94; PULSE 97; RESP 18; TEMP 37.1; O2SAT 99
--- NOTE | 2020-08-12 14:32 | W.ED.GENAD ---
Discharge Plan Disposition Patient Disposition: HOME Condition: Good Discharge Details Clinical Impression: Fracture Primary Care Provider: Brenda Joya V ED Provider: Marilu Jones Home Meds and New Rx's Prescriptions: New hydrocodone-acetaminophen [[place]] 5-325 mg tablet 1 tab PO QHS PRNQty: 5 RF: 0 No Action meclizine 25 MG tablet,chewable 25 mg PO Q6H PRN PRNRF: 0 ascorbic acid (vitamin C) [Vitamin C] 500 MG tablet,chewable 1,000 mg PO DAILY RF: 0 metoprolol tartrate 25 mg Tablet 12.5 mg PO HS RF: 0 nitroglycerin 0.4 mg Tablet, Sublingual 0.4 mg SUBLINGUAL DIRECTED RF: 0 cholecalciferol (vitamin D3) [Vitamin D3] 1,000 unit Capsule 1,000 unit PO .1-2 X WEEKLY RF: 0 rosuvastatin [Crestor] 5 mg Tablet 5 mg PO .//// RF: 0 Calcium 600 + Minerals 600 mg calcium- 200 unit Tablet 1 tab PO .QOD RF: 0 Discharge Instructions Instructions: Wrist Fracture in Adults (ED) Additional Instructions: ice, elevate motrin 400 mg every 12 hours as needed for pain tylenol 650 mg every 6 hours as needed for pain if you choose to take vicodin, do not drive for 12 hours (this medication is addictive and can make you constipated) orthopedics will call you tomorrow return earlier with new or worsening complaints including strength or sensation changes, worsening pain Medical Decision Making Case discussed with on-call orthopedic surgeon, will see in office this week Neurovascularly intact pre and post splint application Given sling Given small amount of opiate analgesia with rest discussed Ibuprofen, ice, elevation No evidence of dislocation on patient's x-ray, no hematoma visualized Ambulatory steady gait No evidence of open fracture Return precautions destination expressed understanding, feels comfortable discharge home and feels as though she is safe with her ADLs Given the to return should she have any worsening complaints Differential Diagnosis Differential Diagnosis: Fracture, dislocation, abrasion, contusion Medical Records Medical records reviewed: Yes I reviewed the patient's medical records. Lab Data Lab results reviewed: Yes I reviewed the patient's lab results. HPI This 75-year-old female presents status post fall. Patient states she was on the ice when she slipped, landing on her right wrist. She denies any additional injuries. Specifically patient denies any head injury, neck pain, back pain, chest pain, hip pain, strength or sensation changes. Pain is exacerbated with movement of her weight. She denies history of. The event occurred approximately an hour and half prior to arrival. She was ambulatory post event. General Date/Time Provider Initiated Documentation: 08/12/20 14:18.. Related Data Home Medications Medication Instructions Recorded Confirmed meclizine 25 mg PO Q6H PRN PRN tab-cap 01/17/15 08/12/20 ascorbic acid (vitamin C) [Vitamin 1,000 mg PO DAILY tab.chew 01/22/15 08/12/20 C] metoprolol tartrate 12.5 mg PO HS 05/23/18 08/12/20 nitroglycerin 0.4 mg SUBLINGUAL DIRECTED 05/23/18 08/12/20 calcium carbonate-vit D3-min 1 tab PO .QOD 06/07/18 08/12/20 [Calcium 600 + Minerals] cholecalciferol (vitamin D3) 1,000 unit PO .1-2 X WEEKLY 06/07/18 08/12/20 [Vitamin D3] rosuvastatin [Crestor] 5 mg PO .///FR/SA 06/07/18 08/12/20 hydrocodone-acetaminophen [[place]] 1 tab PO QHS PRN #5 tab 08/12/20 Previous Rx's Medication Instructions Recorded hydrocodone-acetaminophen [[place]] 1 tab PO QHS PRN #5 tab 08/12/20 Allergies Allergy/AdvReac Type Severity Reaction Status Date / Time bacitracin [From Cortisporin] Allergy Mild Verified 08/12/20 14:30 cephalexin Allergy Mild Verified 08/12/20 14:30 hydrocortisone Allergy Mild Verified 08/12/20 14:30 [From Cortisporin] neomycin [From Cortisporin] Allergy Mild Verified 08/12/20 14:30 Penicillins Allergy Mild Verified 08/12/20 14:30 polymyxin B Allergy Mild Verified 08/12/20 14:30 [From Cortisporin] amoxicillin Allergy Unknown Verified 08/12/20 14:30 shellfish derived Allergy Verified 08/12/20 14:30 Sulfa (Sulfonamide Allergy Verified 08/12/20 14:30 Antibiotics) General Stated Complaint: Orthopedic BRIGITTE: 3 Review of Systems Narrative: Negative x7 aside from where indicated in the HPI Specifically no headache, vision change, nausea, vomiting, history of easy bleeding, confusion, back pain, neck pain, arthralgias aside from wrist, abdominal pain, shortness of breath, chest pain, dizziness [facility] Medical History (Updated 08/12/20 @ 16:11 by GLO Scott) Cortical cataract of left eye Hypertension Nuclear sclerotic cataract of left eye Surgical History Status post cataract extraction and insertion of intraocular lens of left eye (07/10/18) Social History Smoking/Tobacco Use Status: Former Tobacco Use Smoking risk assessment performed?: Yes Alcohol Intake: never Drug use: Never Current gender identity: female Do you feel safe at home: Yes Do you feel safe in your relationship?: Yes Exam Const General: cooperative and frail appearing HENOK Head: normal to inspection Eyes Pupils: PERRL Neck Other: No midline tenderness Chest Other: No palpable tenderness or crepitus Resp Other: Lungs clear to auscultation bilaterally, no visible sign of trauma Cardio Rate: regular rate Rhythm: regular rhythm GI Inspection: normal to inspection Other: No abdominal tenderness or visible evidence of trauma, no flank tenderness or bruising Back/Spine/Pelvis Back: no CVA tenderness Other: No pelvic tenderness, no lumbar spine or thoracic tenderness, no cervical spine tenderness Skin Other: No evidence of open fracture Neuro General: patient alert and patient oriented x3 Cranial Nerves: CN's II-XI intact bilaterally Extrem Other: Right wrist with deformity, no evidence of open fracture, sensation intact distally, distal pulses intact, distal sensation intact, no tenderness noted at right elbow or right shoulder Course Vital Signs Vital signs: Vital Signs Temperature 37.1 C 08/12/20 14:23 Pulse 97 H 08/12/20 14:23 Respiratory Rate 18 08/12/20 14:23 Blood Pressure 184/94 H 08/12/20 14:23 Pulse Oximetry 99 08/12/20 14:23 Temperature 37.1 C 08/12/20 14:23 Temperature Source Temporal Artery Scan 08/12/20 14:23 Pulse 97 H 08/12/20 14:23 Respiratory Rate 18 08/12/20 14:23 Respiratory Effort Non-Labored 08/12/20 14:29 Blood Pressure 184/94 H 08/12/20 14:23 Blood Pressure Position Sitting 08/12/20 14:23 Pulse Oximetry 99 08/12/20 14:23 Oxygen Delivery Method Room Air 08/12/20 14:23 Oxygen Flow Rate 0 08/12/20 14:23 Pain Level 5 08/12/20 14:23 Procedures Orthopedic Splinting/Casting Injury #1: Side: right Upper Extremity Injury Location: wrist Upper Extremity Immobilizer: sugartong splint
[2020-08-12] MEDS: HYDROcodone 5/Acetaminophen 325 TAB PO (14:58)
[2020-08-12] MEDS: Acetaminophen 325 MG TAB 650 MG PO (15:00)
--- NOTE | 2020-08-12 16:21 | NUR.NOTE ---
referral sent to cm to check up on her Rashid Jay Note:
--- NOTE | 2020-08-13 05:50 | OCONE_ITS ---
Date of service: 08/12/20 Time of Service: 16:02 History of Present Illness History of Present Illness Chief Complaint: Right Wrist Pain Narrative: Ms. Hendrickson is a 75-year-old who fell on the ice earlier today. She landed on her right wrist. She had immediate pain. She was brought to the emergency department and diagnosed with a distal radius fracture about the right wrist. I was asked to evaluate Ms. Hendrickson given the intra-articular extension of the fracture fragments. She currently denies any numbness or tingling of the right hand. She does have pain about the wrist as well as the base of the thumb. She denies hitting her head or having any head trauma. Full evaluation by the emergency provider did not identify any other additional injuries. Consults Consult date: 08/12/20 Requesting physician: Marilu Jones Consult Reason Right Distal Radius Fracture Assessment and Plan Assessment and plan (1) Closed fracture of right distal radius: Status: Acute Assessment and plan: Ms. Hendrickson is a 75-year-old who has a fracture of her right distal radius. This is an intra-articular fracture with some mild displacement. She was placed into a sugar tong splint today which has provided comfort. No reduction was performed and I do notthink that one has to have a true reduction performed. I did discuss this with Ms. Hendrickson and at this point she is content with her current position within the splint. I would like to see her in another 5 to 7 days to check an x-ray. That time, we will likely reposition her wrist into a cast if she desires to proceed with nonoperative treatment and there is been no significant displacement of the fracture fragments. Given her age, this is likely to heal in a satisfactory position with good excellent functional results. I did discuss surgery with Ms. Hendrickson to ensure that it is in the best position possible, however, this does not necessarily translate to improve function and she would like to avoid surgery if possible. There are no other concerning findings that I can appreciate. Dorsal angulation of 5 degrees as well within acceptable limits and therefore we will follow-up in another 5 to 7 days to evaluate and x-ray and make additional plans at that time. Qualifiers: Encounter type: initial encounter Fracture morphology: other intra- articular Qualified Code(s): S52.571A - Other intraarticular fracture of lower end of right radius, initial encounter for closed fracture Review of Systems All systems reviewed & are unremarkable except as noted in HPI and below [facility] Medical History (Updated 08/13/20 @ 05:54 by Donte Carmichael MD) Cortical cataract of left eye Hypertension Nuclear sclerotic cataract of left eye Surgical History Status post cataract extraction and insertion of intraocular lens of left eye (07/10/18) Social History Smoking/Tobacco Use Status: Former Tobacco Use Smoking risk assessment performed?: Yes Alcohol Intake: never Drug use: Never Current gender identity: female Do you feel safe at home: Yes Do you feel safe in your relationship?: Yes Exam Narrative Exam Narrative: Resting comfortably in the hospital stretcher. The right arm is already in a splint. This does limit examination. However, she is able demonstrate finger flexion and finger extension as well as thumb flexion and thumb extension. Cap refill less than 2 seconds. Her right shoulder moves freely without pain. Head is normocephalic and atraumatic. Results Last Vital Signs Temp 37.1 C 08/12/20 14:23 Pulse 97 H 08/12/20 14:23 Resp 18 08/12/20 14:23 BP 184/94 H 08/12/20 14:23 Pulse Ox 99 08/12/20 14:23 Imaging Imaging Studies: X-ray of the right wrist was reviewed. This demonstrates a primary extra-articular fracture pattern with some mild dorsal angulation of about 5 degrees. There is no loss of height. There is no significant loss of radial inclination. There is extension of this fracture into the joint space. Although without significant displacement. 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
--- NOTE | 2020-08-15 11:53 | NUR.NOTE ---
Nursing Note: Patient called asking if we might have her coin purse, which she is missing. I looked and we do not have it in the dept. I transferred the call the [employer] manager to see if it had been turned in to them. Melissa Baker
== END 2020-08-12 17:54 | disposition home or self-care (01) ==
PROVIDERS: Emergency Provider Physician Assistant; PCP Family Medicine
DX: S52.571A Other intraarticular fracture of lower end of right radius, initial encounter for closed fracture (principal); W00.0XXA Fall on same level due to ice and snow, initial encounter; I10 Essential (primary) hypertension
CPT/HCPCS: 29125; 93005; 99252; 99283; 99284; 73110; 93010

== ENCOUNTER → 2020-08-27 09:54 | Outpatient (BNVA) | payer MEDICARE, MEDICAID, SELFPAY | PROVIDERS: PCP Family Medicine; Referring Provider Family Medicine; Visit Provider Physician Assistant | DX: S52.571D Other intraarticular fracture of lower end of right radius, subsequent encounter for closed fracture with routine healing (principal); W01.0XXD Fall on same level from slipping, tripping and stumbling without subsequent striking against object, subsequent encounter | CPT/HCPCS: 29075; 99215; 73110 ==

== ENCOUNTER 2020-08-27 12:50 | Outpatient (CLI) | payer MEDICARE, MEDICAID, SELFPAY ==
--- NOTE | 2020-08-27 09:45 | DI.RAD_ITS ---
EXAM: XR WRIST RT COMPLETE CLINICAL HISTORY: right wrist fracture. TECHNIQUE: 2D digital imaging was performed. COMPARISON: CR XR WRIST RT COMPLETE from 08/12/2020 FINDINGS: BONES: There has been no change in alignment of the distal right radial fracture since 08/12/2020. Th e osseous density adjacent to the ulnar styloid process appears stable. No new fracture or dislocati on is seen. No bony destructive lesion is seen. JOINTS: The carpal bones are normally aligned. SOFT TISSUE: There is soft tissue swelling of the wrist. IMPRESSION: Stable right wrist fracture. DATA REPOSITORY: RADIATION DOSE DELIVERED:
== END 2020-08-27 12:51 | disposition home or self-care (01) ==
LOC: DIORS 12:50
PROVIDERS: PCP Family Medicine; Visit Provider Physician Assistant
DX: S52.591A Other fractures of lower end of right radius, initial encounter for closed fracture (principal)
CPT/HCPCS: 73110

== ENCOUNTER 2020-09-17 13:34 | Outpatient (CLI) | payer MEDICARE, MEDICAID, SELFPAY ==
--- NOTE | 2020-09-17 13:40 | DI.RAD_ITS ---
EXAM: XR WRIST RT COMPLETE CLINICAL HISTORY: f/u fracture. TECHNIQUE: 2D digital imaging was performed. COMPARISON: CR XR WRIST RT COMPLETE from 08/27/2020 FINDINGS: Again noted is the healing fracture site in the distal radius and the displaced ulnar styloid tip fra cture. There has been some healing at the distal radius but fracture lines are still evident. No ob vious scaphoid fracture nor widening of the scapholunate distance. No radiopaque foreign body. IMPRESSION: DATA REPOSITORY: RADIATION DOSE DELIVERED:
== END 2020-09-17 13:35 | disposition home or self-care (01) ==
LOC: DIORS 13:35
PROVIDERS: PCP Family Medicine; Referring Provider Family Medicine; Visit Provider Physician Assistant
DX: S52.571D Other intraarticular fracture of lower end of right radius, subsequent encounter for closed fracture with routine healing (principal); W19.XXXD Unspecified fall, subsequent encounter; F41.9 Anxiety disorder, unspecified
CPT/HCPCS: 99213; 73110

== ENCOUNTER 2020-10-16 13:16 | Outpatient (CLI) | payer MEDICARE, MEDICAID, SELFPAY ==
--- NOTE | 2020-10-16 11:15 | DI.RAD_ITS ---
EXAM: XR WRIST RT COMPLETE CLINICAL HISTORY: F/U FRACTURE. TECHNIQUE: 2D digital imaging was performed. COMPARISON: CR XR WRIST RT COMPLETE from 09/17/2020 FINDINGS: There has been some further healing at the impacted fracture of distal radius. Fracture line still e vident. No further displacement. Avulsion fracture off the tip of the ulnar styloid is again noted. No obvious scaphoid fracture. IMPRESSION: DATA REPOSITORY: RADIATION DOSE DELIVERED:
== END 2020-10-16 13:17 | disposition home or self-care (01) ==
LOC: DIORS 13:17
PROVIDERS: PCP Family Medicine; Referring Provider Family Medicine; Visit Provider Student in an Organized Health Care Education/Training Program
DX: S52.571D Other intraarticular fracture of lower end of right radius, subsequent encounter for closed fracture with routine healing (principal); W19.XXXD Unspecified fall, subsequent encounter
CPT/HCPCS: 99213; 73110

== ENCOUNTER 2020-12-05 12:01 | Outpatient (REF) | payer MEDICARE, MEDICAID, SELFPAY ==
[2020-12-05 16:31] LABS: HGB 13.8 g/dL (11.2-15.7)
[2020-12-05 16:46] LABS: ALT 22 U/L (14-59); AST 21 U/L (15-37); Albumin 4.5 g/dL (3.4-5.0); Alkaline Phosphatase 82 U/L (46-116); BUN 14 mg/dL (7-18); Bilirubin, Total 0.4 mg/dL (0.2-1.0); CREATININE 0.8 mg/dL (0.55-1.02); Calcium 9.5 mg/dL (8.5-10.1); Calculated LDL 97 mg/dL (<100); Chloride 104 mmol/L (98-107); Cholesterol 180 mg/dL (<200); Glucose 89 mg/dL (74-106); HDL Cholesterol 64 mg/dL (40-60); Potassium 3.7 mmol/L (3.5-5.1); Sodium 141 mmol/L (136-145); Total Protein 7.9 g/dL (6.4-8.2); Triglyceride 96 mg/dL (<150)
== END 2020-12-05 12:02 | disposition home or self-care (01) ==
LOC: NCHCN 12:01
PROVIDERS: PCP Family Medicine; Visit Provider Family Medicine
DX: E78.5 Hyperlipidemia, unspecified (principal)
CPT/HCPCS: 80053; 80061; 85014; 85018

== ENCOUNTER 2021-05-21 01:08 | Outpatient (CLI) | payer MEDICARE, MEDICAID, SELFPAY ==
--- NOTE | 2021-05-21 | DI.DEXA_ITS ---
Exam(s) XR DEXA BONE DENSITY W/WO KIMBERLEY EXAM: XR DEXA BONE DENSITY W/WO KIMBERLEY CLINICAL HISTORY: SCREENING FOR OSTEOPOROSIS IN POSTMENOPAUSAL WOMAN,Z78.0 TECHNIQUE: Routine DEXA evaluation of the lumbar spine, hip, or forearm. COMPARISON: Prior DEXA scan October 2018 FINDINGS: Performed on a [employer] unit. Lateral image: No compression fracture evident. Lumbar Spine total T-score: -1.4. Prior 2019 reading was -1.2 Hip total T-score:-3.2 . Prior 2019 reading was -2.7 Independent reading at the level of the femoral neck yields at T-score of -2.9. Forearm total T-score: -3.7 IMPRESSION: Bone mineral density measures in the osteoporosis range. Fracture risk is high. Note: Any spine fracture indicates 5x risk for subsequent spine fracture and 2x risk for subsequent h ip fracture. World Health Organization criteria for BMD interpretation classify patients: Normal...... T- Score at or above -1.0 Osteopenic... T- Score between -1.0 and -2.5 Osteoporosis... T-Score at or below -2.5
== END 2021-05-21 01:28 ==
PROVIDERS: PCP Family Medicine; Visit Provider Family Medicine
DX: Z78.0 Asymptomatic menopausal state (principal); Z13.820 Encounter for screening for osteoporosis; M81.0 Age-related osteoporosis without current pathological fracture
CPT/HCPCS: 77080

== ENCOUNTER 2021-10-19 12:32 | Outpatient (REF) | payer MEDICARE, MEDICAID, SELFPAY ==
[2021-10-20 13:55] LABS: COVID-19 RT-PCR UVMMC Result Negative (Negative)
== END 2021-10-19 12:33 | disposition home or self-care (01) ==
LOC: NCHCN 12:32
PROVIDERS: PCP Family Medicine; Visit Provider Family Medicine
DX: Z20.822 Contact with and (suspected) exposure to COVID-19 (principal)
CPT/HCPCS: U0003; U0005

== ENCOUNTER 2022-04-04 14:16 | Emergency (ER) | payer MEDICARE, MEDICAID, SELFPAY ==
[2022-04-04 14:20] VITALS: BP 169/85; PULSE 77; RESP 18; TEMP 36.7; O2SAT 97
--- NOTE | 2022-04-04 14:30 | ED.GENADUL_ITS ---
Discharge Plan Disposition Patient Disposition: HOME Condition: Stable Discharge Details Clinical Impression: Irritation of ear Primary Care Provider: Brenda Joya V ED Provider: Kana Anand Home Meds and New Rx's Prescriptions: Continued cholecalciferol (vitamin D3) 350 mcg (14,000 unit) capsule 350 mcg PO QWEEK calcium carbonate [Calcium 500] 500 mg calcium (1,250 mg) tablet,chewable 500 mg PO DAILY betamethasone dipropionate 0.05 % cream 1 applic topical BID PRN mupirocin 2 % ointment 1 applic topical BID PRN meclizine 25 MG tablet,chewable 25 mg PO Q6H PRN PRN ascorbic acid (vitamin C) [Vitamin C] 500 MG tablet,chewable 1,000 mg PO DAILY metoprolol tartrate 25 mg Tablet 12.5 mg PO HS rosuvastatin [Crestor] 5 mg Tablet 5 mg PO .//// Discharge Instructions Additional Instructions: No evidence of a tick or insect bite. The area that you are pointing to is certainly where your new glasses sit on your ear and this may have caused some irritation. Please watch for new or worsening symptoms and return to the ER for any concerns Medical Decision Making Patient presents concerned that there may be a tick behind her right ear. She also reports that she got new glasses may sit differently on her ear causing irritation. Examination is unremarkable. No evidence of tick bite, insect bite, erythema, warmth, tenderness, break of the skin. Patient is relieved and comfortable discharge. She will continue to monitor the way her glasses make her ears feel Standard discharge and return precautions were provided. Patient understands, is agreeable to this plan, and has no additional questions or concerns upon discharge. This documentation was generated using [employer] system, please disregard any oddities of phrase or misspellings. HPI General Mode of arrival: ambulatory . Date/Time Provider Initiated Documentation: 04/04/22 14:26 . Limitations to Documentation: no limitations . Information obtained by: patient . HPI Narrative: 76-year-old female was working outside today, felt some irritation behind her right ear and concerned that there may be a tick. She cannot see very well behind her ear to be sure. She also reports that she recently got new glasses and the new glasses sit slightly uncomfortable on her ear and may be if this is what is causing her symptoms. No additional concerns or complaints at this time Related Data Home Medications Medication Instructions Recorded Confirmed meclizine 25 mg chewable tablet 25 mg PO Q6H PRN PRN 01/17/15 04/04/22 ascorbic acid (vitamin C) 500 mg 1,000 mg PO DAILY 01/22/15 04/04/22 chewable tablet (Vitamin C) metoprolol tartrate 25 mg tablet 12.5 mg PO HS 05/23/18 04/04/22 rosuvastatin 5 mg tablet (Crestor) 5 mg PO .///FR/SA 06/07/18 04/04/22 betamethasone dipropionate 0.05 % 1 applic topical BID PRN 06/03/21 04/04/22 topical cream calcium carbonate 500 mg calcium 500 mg PO DAILY 06/03/21 04/04/22 (1,250 mg) chewable tablet (Calcium 500) cholecalciferol (vitamin D3) 350 350 mcg PO QWEEK 06/03/21 04/04/22 mcg (14,000 unit) capsule mupirocin 2 % topical ointment 1 applic topical BID PRN 06/03/21 04/04/22 Allergies Allergy/AdvReac Type Severity Reaction Status Date / Time bacitracin [From Cortisporin] Allergy Mild Verified 04/04/22 14:24 cephalexin Allergy Mild Verified 04/04/22 14:24 hydrocortisone Allergy Mild Verified 04/04/22 14:24 [From Cortisporin] neomycin [From Cortisporin] Allergy Mild Verified 04/04/22 14:24 Penicillins Allergy Mild Verified 04/04/22 14:24 polymyxin B Allergy Mild Verified 04/04/22 14:24 [From Cortisporin] amoxicillin Allergy Unknown Verified 04/04/22 14:24 shellfish derived Allergy Verified 04/04/22 14:24 Sulfa (Sulfonamide Allergy Verified 04/04/22 14:24 Antibiotics) acetaminophen [From Vicodin] AdvReac Intermediate vomiting Verified 04/04/22 14:24 hydrocodone [From Vicodin] AdvReac Intermediate vomiting Verified 04/04/22 14:24 General Stated Complaint: GenMedical BRIGITTE: 5 Review of Systems Constitutional Constitutional: Denies fever(s) ENT Ears, Nose, Mouth, and Throat: Denies ear discharge Integumentary/Breasts Skin/Breast: Denies erythema and Denies rash PFSH All Active Problems Irritation of ear (Acute) Closed fracture of right distal radius (Acute 08/12/20) Fracture of 5th metatarsal (Acute) Status post cataract extraction and insertion of intraocular lens of left eye (Chronic 07/10/18) Medical History Bitten by squirrel, initial encounter Chronic dyspnea Chronic vertigo Cognitive impairment, mild, so stated Cortical cataract of left eye Encounter for preventative adult health care examination Foot pain, left HPV in female Hx of basal cell carcinoma Hx of supraventricular tachycardia Hyperlipidemia Hypertension Insomnia Intermittent chest pain Nuclear sclerotic cataract of left eye Ocular migraine Optic nerve disorder Osteoporosis Palpitations PTSD (post-traumatic stress disorder) Rash, skin Restrictive lung disease Unspecified fracture of unspecified wrist and hand, sequela Visual changes Social History Smoking/Tobacco Use Status: Former Tobacco Use Smoking risk assessment performed?: Yes Alcohol Intake: never Drug use: Never Substance use type: does not use Current gender identity: female Do you feel safe at home: Yes Do you feel safe in your relationship?: Yes Exam Const General: cooperative, healthy appearing, comfortable and no acute distress Orientation: alert and awake HENMT Head: normal to inspection, normocephalic and atraumatic Ears: external ears normal, TM's normal bilaterally and EAC's normal Face and sinus: normal facial exam Mouth: moist mucous membranes Eyes General: appearance normal, both eyes and all related structures Conjunctivae: conjunctivae normal Neck Neck: normal visual inspection, full ROM, trachea midline and supple Resp Effort & Inspection: normal respiratory effort and able to speak in complete sentences Skin General skin exam: no rashes or lesions noted Neuro General: patient alert, patient awake, moves all extremities and no focal motor deficits Cognition: normal cognition Speech: speech normal Gait: normal gait Sensory Exam: no sensory deficits noted Psych Appearance: grossly normal Mental Status: mental status grossly normal Course Vital Signs Vital signs: Vital Signs Temperature 36.7 C 04/04/22 14:20 Pulse 77 04/04/22 14:20 Respiratory Rate 18 04/04/22 14:20 Blood Pressure 169/85 H 04/04/22 14:20 Pulse Oximetry 97 04/04/22 14:20 Temperature 36.7 C 04/04/22 14:20 Temperature Source Temporal Artery Scan 04/04/22 14:20 Pulse 77 04/04/22 14:20 Respiratory Rate 18 04/04/22 14:20 Respiratory Effort Non-Labored 04/04/22 14:22 Blood Pressure 169/85 H 04/04/22 14:20 Blood Pressure Position Sitting 04/04/22 14:20 Pulse Oximetry 97 04/04/22 14:20 Oxygen Delivery Method Room Air 04/04/22 14:20 Oxygen Flow Rate 0 04/04/22 14:20 Pain Level 0 04/04/22 14:20
== END 2022-04-04 14:34 | disposition home or self-care (01) ==
LOC: ER 14:38
PROVIDERS: Emergency Provider Physician Assistant; PCP Family Medicine
DX: H93.8X2 Other specified disorders of left ear (principal); Z87.891 Personal history of nicotine dependence
CPT/HCPCS: 99281

== ENCOUNTER 2022-07-01 14:46 | Outpatient (REF) | payer MEDICARE, MEDICAID, SELFPAY ==
[2022-07-01 16:09] LABS: ALT 22 U/L (14-59); AST 26 U/L (15-37); Albumin 4.1 g/dL (3.4-5.0); Alkaline Phosphatase 81 U/L (46-116); Bilirubin, Total 0.5 mg/dL (0.2-1.0); Calculated LDL 88 mg/dL (<100); Cholesterol 167 mg/dL (<200); HDL Cholesterol 62 mg/dL (40-60); Total Protein 7.4 g/dL (6.4-8.2); Triglyceride 85 mg/dL (<150)
[2022-07-01 16:17] LABS: Bilirubin, Direct 0.2 mg/dL (0.0-0.2)
== END 2022-07-01 14:47 | disposition home or self-care (01) ==
LOC: NCHCN 14:46
PROVIDERS: PCP Family Medicine; Visit Provider Family Medicine
DX: E78.5 Hyperlipidemia, unspecified (principal)
CPT/HCPCS: 80061; 80076

== ENCOUNTER 2023-06-28 15:26 | Outpatient (REF) | payer MEDICARE, MEDICAID, SELFPAY | END 2023-06-28 15:27 | disposition home or self-care (01) | LOC: NCHCN 15:26 | PROVIDERS: PCP Family Medicine; Visit Provider Family Medicine | DX: J02.9 Acute pharyngitis, unspecified (principal) | CPT/HCPCS: 87070 ==

== ENCOUNTER 2023-07-07 19:54 | Outpatient (REF) | payer MEDICARE, MEDICAID, SELFPAY ==
[2023-07-07 19:19] LABS: HCT 39.6 % (36.0-46.0); HGB 12.9 g/dL (11.2-15.7); MCH 29.1 pg (27.0-33.0); MCHC 32.6 % (32.0-36.0); MCV 89 fL (80-95); MPV 9.9 fL (8.0-11.0); Platelet Count 207 10^3/uL (130-400); RBC 4.44 10^6/uL (3.93-5.22); RDW 12.2 % (11.7-14.6); RDW-SD 39.6 fL; WBC 6.85 10^3/uL (4.4-10.8)
[2023-07-07 19:22] LABS: ESR 15 mm/hr (0-30)
[2023-07-07 19:24] LABS: Hemoglobin A1C 5.7 % (<5.7)
[2023-07-07 19:51] LABS: AST 21 U/L (15-37); Creatine Kinase 79 U/L (26-192); FREE T4 1.46 ng/dL (0.76-1.46); TSH 1.14 uIU/mL (0.36-3.74)
[2023-07-07 20:30] LABS: Vitamin B12 608 pg/mL (193-986)
[2023-07-08 17:53] LABS: CRP, High Sensitivity 3.49 mg/L (See Note)
[2023-07-11 14:37] LABS: Albumin g/dL 4.3 g/dL (3.6-5.2); Comment (See Note); Total Protein 7.6 g/dL (6.3-8.2)
[2023-07-11 15:43] LABS: Immunotyping, Serum (See Note)
== END 2023-07-07 19:55 | disposition home or self-care (01) ==
LOC: NCHCN 19:54
PROVIDERS: PCP Family Medicine; Visit Provider Family Medicine
DX: Z00.00 Encounter for general adult medical examination without abnormal findings (principal)
CPT/HCPCS: 82550; 85027; 85652; 86141; 82607; 83036; 84165; 84439; 84443; 84450; 86140; 86320

== ENCOUNTER 2023-10-09 08:02 | Emergency (ER) | payer MEDICARE, MEDICAID, SELFPAY ==
[2023-10-09 08:05] VITALS: BP 176/85; PULSE 83; RESP 16; TEMP 36.4; O2SAT 98
--- NOTE | 2023-10-09 08:24 | W.ED.GENAD ---
Discharge Plan Disposition Patient Disposition: Home Discharge Details Chief Complaint: Laceration Clinical Impression: Finger laceration Primary Care Provider: Brenda Joya V ED Provider: Devin Linares Home Meds and New Rx's Prescriptions: No Action nitroglycerin [Nitrostat] 0.4 mg tablet, sublingual 0.4 mg sublingual Q5M PRN Rx Instructions: do not exceed 3 doses per episode timolol 0.5 % drops 1 drp ophthalmic (eye) DAILY cholecalciferol (vitamin D3) 350 mcg (14,000 unit) capsule 350 mcg PO QWEEK betamethasone dipropionate 0.05 % cream 1 applic topical BID PRN mupirocin 2 % ointment 1 applic topical BID PRN meclizine 25 MG tablet,chewable 25 mg PO Q6H PRN PRN ascorbic acid (vitamin C) [Vitamin C] 500 MG tablet,chewable 1,000 mg PO DAILY metoprolol tartrate 25 mg Tablet 12.5 mg PO HS rosuvastatin [Crestor] 5 mg Tablet 5 mg PO .//// Discharge Instructions Instructions: Finger Laceration (ED) Additional Instructions: Watch for any signs of infection and return immediately to the emergency department if these occur. Otherwise keep wound clean and dry. Follow-up with primary care provider as needed Referrals: Brenda Joya MD [Primary Care Provider] - [facility] General Mode of arrival: ambulatory. Date/Time Provider Initiated Documentation: 10/09/23 08:03. Limitations to Documentation: no limitations. Information obtained by: patient and RN notes reviewed. History of Present Illness 78 year old F presents to the emergency department with the chief complaint of Right index finger laceration, described as mild, Patient started experiencing this hour(s) (18) and it has been constant. No relieving factors improve symptom(s), No exacerbating factors reported . Patient notes no other symptoms.. Patient did receive the following treatments prior to arrival, none Related Data Home Medications Medication Instructions Recorded Confirmed meclizine 25 mg chewable tablet 25 mg PO Q6H PRN PRN 01/17/15 08/17/23 ascorbic acid (vitamin C) 500 mg 1,000 mg PO DAILY 01/22/15 08/17/23 chewable tablet (Vitamin C) metoprolol tartrate 25 mg tablet 12.5 mg PO HS 05/23/18 08/17/23 rosuvastatin 5 mg tablet (Crestor) 5 mg PO .///FR/SA 06/07/18 08/17/23 betamethasone dipropionate 0.05 % 1 applic topical BID PRN 06/03/21 08/17/23 topical cream cholecalciferol (vitamin D3) 350 350 mcg PO QWEEK 06/03/21 08/17/23 mcg (14,000 unit) capsule mupirocin 2 % topical ointment 1 applic topical BID PRN 06/03/21 08/17/23 nitroglycerin 0.4 mg sublingual 0.4 mg sublingual Q5M PRN 07/21/23 08/17/23 tablet (Nitrostat) timolol 0.5 % eye drops 1 drp ophthalmic (eye) DAILY 07/21/23 08/17/23 Allergies Allergy/AdvReac Type Severity Reaction Status Date / Time bacitracin [From Cortisporin] Allergy Mild Other (See Verified 10/09/23 08:11 Comment) cephalexin Allergy Mild Other (See Verified 10/09/23 08:11 Comment) hydrocortisone Allergy Mild Other (See Verified 10/09/23 08:11 [From Cortisporin] Comment) neomycin [From Cortisporin] Allergy Mild Other (See Verified 10/09/23 08:11 Comment) Penicillins Allergy Mild Other (See Verified 10/09/23 08:11 Comment) polymyxin B Allergy Mild Other (See Verified 10/09/23 08:11 [From Cortisporin] Comment) amoxicillin Allergy Unknown Other (See Verified 10/09/23 08:11 Comment) shellfish derived Allergy Other (See Verified 10/09/23 08:11 Comment) Sulfa (Sulfonamide Allergy Other (See Verified 10/09/23 08:11 Antibiotics) Comment) acetaminophen [From Vicodin] AdvReac Intermediate vomiting Verified 10/09/23 08:11 hydrocodone [From Vicodin] AdvReac Intermediate vomiting Verified 10/09/23 08:11 General Stated Complaint: Laceration BRIGITTE: 4 Review of Systems Musculoskeletal Musculoskeletal: Denies arthralgias, Denies limited range of motion, Denies numbness and Denies tingling Integumentary/Breasts Skin/Breast: Reports as per HPI Neurologic Neurologic: Denies numbness and Denies tingling Exam Const General: cooperative, no acute distress and not ill appearing Orientation: alert, awake and oriented x3 HENMT Mouth: moist mucous membranes Resp Effort & Inspection: normal respiratory effort, able to speak in complete sentences and no respiratory distress Cardio Rate: regular rate Rhythm: regular rhythm Pulses: normal peripheral pulses Neuro General: patient alert, patient awake, patient oriented x3, moves all extremities and no focal motor deficits Sensory Exam: no sensory deficits noted Extrem General: normal exam except as noted Right upper extremity: hand Details: laceration 2nd digit dorsal aspect central Details: flap, superficial, with motor nerve function intact and with sensation intact; not actively bleeding Course Vital Signs Vital signs: Vital Signs Temperature 36.4 C 10/09/23 08:05 Pulse 83 10/09/23 08:05 Respiratory Rate 16 10/09/23 08:05 Blood Pressure 176/85 H 10/09/23 08:05 Pulse Oximetry 98 10/09/23 08:05 Temperature 36.4 C 10/09/23 08:05 Temperature Source Oral 10/09/23 08:05 Pulse 83 10/09/23 08:05 Respiratory Rate 16 10/09/23 08:05 Respiratory Effort Normal, Non-Labored 10/09/23 08:16 Blood Pressure 176/85 H 10/09/23 08:05 Blood Pressure Position Sitting 10/09/23 08:05 Pulse Oximetry 98 10/09/23 08:05 Oxygen Delivery Method Room Air 10/09/23 08:05 Oxygen Flow Rate 0 10/09/23 08:05 Pain Level 0 10/09/23 08:16 Medical Decision Making Patient presenting the emergency department for chief complaint of right index finger laceration. Patient states that this occurred on a plastic container yesterday around 2 PM. Patient denies any other injury or trauma, states she is up-to-date on her tetanus, denies any other significant contributing past medical history. Physical exam shows a flap laceration to the dorsal aspect of the right index finger PIP. Cap refill movement and sensation is intact distal to injury. Given that laceration is greater than 12 hours old not a candidate for suture repair so 1 Steri-Strip was placed just to help keep the flap held down. Bleeding is well-controlled and no signs of infection. Patient encouraged to monitor wound and perform standard wound care. Also discussed with patient return and follow-up precautions. After discussion of diagnosis and plan of care patient has no further needs, questions, or concerns and states clear understanding to return to the emergency department for any worsening symptoms. This documentation was generated using [employer] dictation system, please disregard any oddities of phrase or misspellings. 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 Chest pain Dizziness and giddiness Dyspnea HPV (human papilloma virus) infection Glaucoma Fracture of wrist Disorder of lung Senile osteoporosis Fracture of foot Chronic sore throat Muscle pain Peripheral nerve disease Visual changes Cognitive impairment, mild, so stated Hyperlipidemia Osteoporosis Bitten by squirrel, initial encounter Intermittent chest pain Encounter for preventative adult health care examination Rash, skin Insomnia Palpitations Optic nerve disorder Restrictive lung disease PTSD (post-traumatic stress disorder) Hx of supraventricular tachycardia Ocular migraine Chronic vertigo Hx of basal cell carcinoma HPV in female Chronic dyspnea Unspecified fracture of unspecified wrist and hand, sequela Foot pain, left Cortical cataract of left eye Nuclear sclerotic cataract of left eye Hypertension Family History Mother Cancer Sister Hyperthyroidism Social History Smoking/Tobacco Use Status: Former Tobacco Use Smoking risk assessment performed?: Yes Alcohol Intake: never Drug use: Never Substance use type: does not use Current gender identity: female Do you feel safe at home: Yes Do you feel safe in your relationship?: Yes
== END 2023-10-09 08:32 | disposition home or self-care (01) ==
PROVIDERS: Emergency Provider Nurse Practitioner Family; PCP Family Medicine
DX: S61.210A Laceration without foreign body of right index finger without damage to nail, initial encounter (principal); I10 Essential (primary) hypertension; E78.5 Hyperlipidemia, unspecified; Z87.891 Personal history of nicotine dependence; W26.8XXA Contact with other sharp object(s), not elsewhere classified, initial encounter
CPT/HCPCS: 99283